=== PATIENT | male | born 1970 | race Caucasian/White ===

== ENCOUNTER 2020-11-24 08:12 | Outpatient (CLI) | payer BC, SELFPAY ==
--- NOTE | ~2020-11-24 | CT_ITS ---
EXAMINATION: CT sinus wo con DATE: 11/24/2020 08:40 INDICATION: Sinusitis TECHNIQUE: Computed tomography (CT) of the paranasal sinuses was performed without intravenous contra st. The dose-length product was 175.96 mGy-cm. Automated exposure control and iterative reconstructio n technique were employed. COMPARISON: 05/21/2012 FINDINGS: There is mucosal thickening of the maxillary, ethmoid, sphenoid and frontal sinuses. Small air-fluid levels noted. There is old healed nasal fracture. Rightward nasal septal deviation. Left os tiomeatal unit is patent. Right ostiomeatal unit is partially occluded by soft tissue. Mastoids are p neumatized. IMPRESSION: 1. Mild pansinusitis with partial occlusion of the right ostiomeatal unit. Reviewed, dictated and finalized at location A. [employer]
== END 2020-11-24 08:13 | disposition home or self-care (01) ==
PROVIDERS: PCP Family Medicine Sports Medicine; Visit Provider Otolaryngology
DX: R44.8 Other symptoms and signs involving general sensations and perceptions (principal); Z87.898 Personal history of other specified conditions; R09.81 Nasal congestion; J32.4 Chronic pansinusitis
CPT/HCPCS: 70486

== ENCOUNTER → 2021-01-15 00:31 | Outpatient (CLI) | payer BC, SELFPAY ==
[2021-01-15 21:18] LABS: SARS-CoV-2 RNA PCR Negative
== END ==
PROVIDERS: PCP Family Medicine Sports Medicine; Visit Provider Internal Medicine Gastroenterology
DX: Z01.812 Encounter for preprocedural laboratory examination (principal); Z20.822 Contact with and (suspected) exposure to COVID-19
CPT/HCPCS: C9803; U0003; U0005

== ENCOUNTER 2021-01-18 00:14 | Day surgery (SDC) | payer BC, SELFPAY ==
[2020-12-27 10:04] VITALS: BMI 39.5
[2021-01-18 08:51] VITALS: BP 140/84; PULSE 72; RESP 20; TEMP 36.8; O2SAT 98
[2021-01-18] MEDS: LACTATED RINGERS 1,000 ML 150 ML IV CONT (08:58)
--- NOTE | 2021-01-18 09:10 | WPDANESEPPF ---
Anes - Initial Pre Proc Eval Procedure: Operation Date: 01/18/21 09:30 Proposed Procedures p Esophagogastroduodenoscopy & Colonoscopy - Jaylen Pantoja MD Date/Time: 01/18/21 09:10 Surgeon: Jaylen Pantoja MD Pre Op Diagnosis: GERD, ? Patient Data Age: 50 Gender: M Height: 6 ft 1 in Weight: 136 kg Last Vital Signs Temp 36.8 C 01/18/21 08:51 Pulse 72 01/18/21 08:51 Resp 20 01/18/21 08:51 BP 140/84 01/18/21 08:51 Pulse Ox 98 01/18/21 08:51 Allergies Allergy/AdvReac Type Severity Reaction Status Date / Time No Known Allergies Allergy Verified 01/18/21 08:49 NKFA Allergy Unknown Unknown Uncoded 01/18/21 08:49 Home Medications Medication Instructions Recorded Confirmed Type amlodipine 5 mg tablet 5 mg PO DAILY 08/23/20 12/27/20 History atorvastatin 10 mg tablet 10 mg PO DAILY 08/23/20 12/27/20 History azelastine 137 mcg (0.1 %) nasal 1 spray NASAL Q12H #30 ml 08/23/20 12/27/20 Rx spray aerosol fluconazole 50 mg tablet 50 mg PO DAILY 08/23/20 12/27/20 History losartan 100 1 tablet PO DAILY 08/23/20 12/27/20 History mg-hydrochlorothiazide 25 mg tablet pantoprazole 40 mg tablet,delayed 40 mg PO QAM 08/23/20 12/27/20 History release albuterol sulfate 90 mcg/actuation 1 inh INHALATION Q12H #18 g 10/16/20 12/27/20 Rx aerosol inhaler sodium,potassium,mag sulfates See Rx Instructions .ROUTE 12/25/20 Rx [Suprep Bowel Prep Kit] .COMPLEX #1 ml Patient hx anesthesia problems: none Family hx anesthesia problems: none PMFSH Past Medical History Medical History (Updated 01/18/21 @ 09:11 by Hermann Bravo MD) Colon polyp HTN (hypertension) ASIM on CPAP Severe obesity (BMI >= 40) Surgical History Surgical History (Updated 01/18/21 @ 09:13 by Hermann Bravo MD) H/O colonoscopy H/O sinus surgery History of esophagogastroduodenoscopy (EGD) Social History Social History Smoking status: Never smoker Second hand tobacco smoke exposure: No Alcohol intake: current Drinks per week: 14 Substance use: never Substance use type: does not use Living arrangements: with family Spiritual care concerns: No Anes - Eval Final PreProcedure Day of Procedure 01/18/21 09:10 Patient weight: morbidly obese Heart: regular rate and rhythm Lungs: clear to auscultation Airway: Mallampati scale class II Neurological: alert and oriented Last oral intake: >/= 8 hours ASA classification: III Emergent: no Anesthetic plan: proceed Anesthesia type and monitoring: general GIVS and standard monitoring Informed Consent: The patient's anesthetic plan and its attendant risks and benefits were discussed with the patient/family/POA. Questions were solicited and answers provided to the satisfaction of the patient/family/POA.
--- NOTE | 2021-01-18 10:01 | PM.HPGS ---
History of Present Illness History of Present Illness Consent: Risks, benefits, and alternatives have been discussed and questions answered. Patient agrees to proceed with procedure. Chief complaint: GERD, ? Narrative: Darrick Zapata is a 50 year old male with gerd on pantoprazole but still sinus congestion for a year, also remote history of colon polyps Review of Systems Constitutional: Constitutional: Denies headache(s) and Denies weakness Eyes: Eyes: Denies blurry vision ENT: Reports Normal hearing present, Denies headache(s) and Denies neck pain Cardiovascular: Cardiovascular: Denies chest pain and Denies dyspnea Respiratory: Respiratory: Denies dyspnea Gastrointestinal: Gastrointestinal: Reports no additional gastrointestinal complaints Genitourinary: Genitourinary: Denies dysuria Musculoskeletal: Musculoskeletal: Denies neck pain Integumentary/Breasts: Skin/Breast: Denies dry skin Neurologic: Reports Normal hearing present, Denies headache(s) and Denies weakness Psychiatric: Psychiatric: Denies anxiety Endocrine: Endocrine: Denies change in body appearance Hematologic/Lymphatic: Hematologic/Lymphatic: Denies easy bleeding Allergic/Immunologic: Allergic/Immunologic: Denies urticaria PMFSH Past Medical History Medical History (Updated 01/18/21 @ 09:11 by Hermann Bravo MD) Colon polyp HTN (hypertension) ASIM on CPAP Severe obesity (BMI >= 40) Surgical History Surgical History (Updated 01/18/21 @ 09:13 by Hermann Bravo MD) H/O colonoscopy H/O sinus surgery History of esophagogastroduodenoscopy (EGD) Social History Social History Smoking status: Never smoker Second hand tobacco smoke exposure: No Alcohol intake: current Drinks per week: 14 Substance use: never Substance use type: does not use Living arrangements: with family Spiritual care concerns: No Meds Home Medications and Allergies Home Medications Medication Instructions Recorded Confirmed Type amlodipine 5 mg tablet 5 mg PO DAILY 08/23/20 12/27/20 History atorvastatin 10 mg tablet 10 mg PO DAILY 08/23/20 12/27/20 History azelastine 137 mcg (0.1 %) nasal 1 spray NASAL Q12H #30 ml 08/23/20 12/27/20 Rx spray aerosol fluconazole 50 mg tablet 50 mg PO DAILY 08/23/20 12/27/20 History losartan 100 1 tablet PO DAILY 08/23/20 12/27/20 History mg-hydrochlorothiazide 25 mg tablet pantoprazole 40 mg tablet,delayed 40 mg PO QAM 08/23/20 12/27/20 History release albuterol sulfate 90 mcg/actuation 1 inh INHALATION Q12H #18 g 10/16/20 12/27/20 Rx aerosol inhaler sodium,potassium,mag sulfates See Rx Instructions .ROUTE 12/25/20 Rx [Suprep Bowel Prep Kit] .COMPLEX #1 ml Allergies Allergy/AdvReac Type Severity Reaction Status Date / Time No Known Allergies Allergy Verified 01/18/21 08:49 NKFA Allergy Unknown Unknown Uncoded 01/18/21 08:49 Vital Signs Vital Signs - 24 hr 01/18/21 08:51 Temperature 98.2 F Pulse Rate 72 Respiratory Rate 20 Blood Pressure 140/84 Pulse Oximetry 98 Exam Const: General: comfortable and no acute distress HENMT: General nose exam: Normal nares present Eyes: General: appearance normal, both eyes and all related structures Neck: Neck: no JVD Resp: Auscultation: clear to auscultation bilaterally Cardio: Rate: regular rate Rhythm: regular rhythm GI: Inspection: non-distended GI Palp: Yes Soft to palpation Skin: General skin exam: normal color Neuro: General: gait normal Speech: normal speech Extrem: General: normal to inspection Psych: Mental Status: mental status grossly normal Assessment and Plan Assessment and plan (1) GERD (gastroesophageal reflux disease): Code(s): K21.9 - Gastro-esophageal reflux disease without esophagitis Status: Acute Assessment and Plan: egd with bx (2) Chronic sinusitis: Code(s): J32.9 - Chronic sinusitis, unspecif
[2021-01-18] MEDS: BENZOCAINE (*SP) 60 ML SPRAY CAN (HURRICAINE) 1 SPRAY MUCOUS MEM (10:02)
[2021-01-18 10:30] VITALS: BP 123/79; PULSE 71; RESP 17; O2SAT 97
[2021-01-18 10:40] VITALS: BP 133/83; PULSE 66; RESP 15; O2SAT 98
[2021-01-18 10:50] VITALS: BP 127/81; PULSE 66; RESP 14; O2SAT 98
== END 2021-01-18 11:10 | disposition home or self-care (01) ==
PROVIDERS: PCP Family Medicine Sports Medicine; Visit Provider Internal Medicine Gastroenterology
PROC: 0DJ08ZZ Inspection of Upper Intestinal Tract, Via Natural or Artificial Opening Endoscopic (ICD-10-PCS; CPT 43235; principal; 2021-01-18 09:30)
DX: Z12.11 Encounter for screening for malignant neoplasm of colon (principal); K21.9 Gastro-esophageal reflux disease without esophagitis; K57.30 Diverticulosis of large intestine without perforation or abscess without bleeding; I10 Essential (primary) hypertension; G47.33 Obstructive sleep apnea (adult) (pediatric); J32.9 Chronic sinusitis, unspecified; E66.9 Obesity, unspecified; Z86.010 Personal history of colon polyps
CPT/HCPCS: 45378; 43239; 88305; J2704; J7120

== ENCOUNTER 2025-05-30 10:26 | Outpatient (CLI) | payer OTHER, SELFPAY ==
--- NOTE | ~2025-05-30 | XR_ITS ---
Clinical Indication: Cough PA and lateral views of the chest: Comparison: 07/19/2008 Findings: The lungs are clear, without evidence of focal consolidation or pleural effusion. Cardiome diastinal silhouette is within normal limits. Bones and soft tissues are unremarkable. Impression: Normal chest. Reviewed, dictated and finalized at location . Impression: Normal chest.
== END 2025-05-30 10:27 | disposition home or self-care (01) ==
PROVIDERS: PCP Allergy & Immunology; Visit Provider Allergy & Immunology
DX: R05.3 Chronic cough (principal)
CPT/HCPCS: 71046